=== PATIENT | male | born 1985 | race Caucasian/White ===

== ENCOUNTER 2018-01-11 09:50 | Emergency (ER) | payer OTHER ==
[~2018-01-11] VITALS: Ht 177.8 cm; Wt 63.6 kg
[2018-01-11] MEDS ORDERED: KETOROLAC 30MG/ML VIAL IV ONE (10:45)
[2018-01-11] MEDS ORDERED: CLINDAMYCIN 600 MG in DEXTROSE 5% WATER 50 ML IV ONE (10:45)
[2018-01-11 11:53] LABS: BASOPHILS % 0.4 % (0.0-2.0); EOSINOPHILS % 0.4 % (0.0-5.0); HEMOGLOBIN. 16.2 g/dL (14.0-18.0); LYMPHOCYTES % 13.9 % (20.0-50.0); MEAN CORPUSCULAR HEMOGLOBIN 31.1 pg (28.0-32.0); MEAN CORPUSCULAR VOLUME 90.1 fL (80.0-94.0); MEAN PLATELET VOLUME 8.4 fl (7.4-10.4); MONOCYTES % 5.4 % (2.0-8.0); NEUTROPHILS % 79.9 % (40.0-76.0); PLATELET 238 x1000/uL (130-400); RED BLOOD CELL COUNT 5.22 mill/uL (4.7-6.1); RED CELL DISTRIBUTION WIDTH 13.4 % (11.6-14.6)
[2018-01-11 12:00] LABS: CHLORIDE 105 mEq/L (98-107)
[2018-01-11] MEDS ORDERED: LIDOCAINE HCL 1% 20ML VIAL (Pyxis) INJ INFIL ONE (13:00)
[2018-01-11] MEDS ORDERED: LIDOCAINE HCL 1% 10 MG/ML 10ML VIAL ONE (13:11)
[2018-01-11 13:51] VITALS: BP 119/80
== END 2018-01-11 13:52 | disposition home or self-care (01) ==
LOC: ER 11:10
DX: N49.2 Inflammatory disorders of scrotum (principal); F12.10 Cannabis abuse, uncomplicated
CPT/HCPCS: 36415; 55100; 76870; 80053; 85025; 93976; 96365; 96366; 96375; 99285; J1885; J3490; Z7610; J7060

== ENCOUNTER 2018-01-13 09:54 | Emergency (ER) | payer OTHER ==
[~2018-01-13] VITALS: Ht 177.8 cm; Wt 66.7 kg
[2018-01-13 09:57] VITALS: BP 130/82
[2018-01-13] MEDS ORDERED: BACITRACIN ZINC OINT UDPKT TOP ONE (12:00)
== END 2018-01-13 13:14 | disposition home or self-care (01) ==
LOC: ER 10:24
DX: Z48.00 Encounter for change or removal of nonsurgical wound dressing (principal)
CPT/HCPCS: 99283

== ENCOUNTER 2021-11-10 12:05 | Emergency (ER) | payer BC, MEDICAID, OTHER ==
[~2021-11-10] VITALS: Ht 175.3 cm; Wt 71.0 kg
[2021-11-10 12:10] VITALS: BP 139/109
[2021-11-10] MEDS ORDERED: TETANUS, DIPHTHERIA, PERTUSSIS VAC/PF 0.5ML (>10YR OLD) IM ONE (12:30)
[2021-11-10] MEDS ORDERED: BACITRACIN ZINC OINT UDPKT TOP ONE (12:30)
[2021-11-10] MEDS ORDERED: AMOX1TAB16 MT (13:54)
== END 2021-11-10 14:01 | disposition home or self-care (01) ==
LOC: ER 12:05
DX: S61.254A Open bite of right ring finger without damage to nail, initial encounter (principal); L03.011 Cellulitis of right finger; I10 Essential (primary) hypertension; W55.01XA Bitten by cat, initial encounter; Y93.89 Activity, other specified; Y92.9 Unspecified place or not applicable; Z86.19 Personal history of other infectious and parasitic diseases
CPT/HCPCS: 90471; 90715; 99283